=== PATIENT | female | born 1940 | race Caucasian/White ===

== ENCOUNTER 2016-03-05 20:04 | Emergency (ER) | payer OTHER ==
[2016-03-05] MEDS ORDERED: NORCO-7.5 PO ONE (20:16)
--- NOTE | 2016-03-05 20:45 | PROVIDER DOCUMENTATION ---
HPI-Musculoskeletal Pain/Inj - GENERAL Chief Complaint: Fall Stated Complaint: fall Time Seen by Provider: 03/05/16 20:10 Source: patient - HX OF PRESENT ILLNESS-MUSKULOSKELTAL Nature of Presenting Problem: 75 y/o [facility] BIB [facility] s/p fall just [employer]. She was trying to get from her chair to the wheelchair, fell on the right knee. Hit the left parietal region on the side of a tv stand, denies loc, headache, changes in vision, blurry vision, nausea or vomiting. States she has trouble ambulating at baseline, no walker used at this point. She has not been able to ambulate since then. Reports swelling and pain to the right knee. Denies deformity, but not able to move it without pain Review of Systems - Adult - REVIEW OF SYSTEMS - ADULT Constitutional: reports: no symptoms reported. denies: chills, fever, fatique Eyes: reports: no symptoms reported. denies: blurred vision, double vision, eye pain Ears, Nose, Mouth & Throat: reports: no symptoms reported. denies: ear pain, nose pain, throat pain Cardiovascular: reports: no symptoms reported. denies: chest pain, palpitations Respiratory: reports: no symptoms reported. denies: cough, shortness of breath , wheezing Gastrointestinal: reports: no symptoms reported. denies: abdominal pain, diarrhea, nausea, vomiting Genitourinary: reports: no symptoms reported. denies: dysuria, discharge, frequency Musculoskeletal: reports: see HPI, joint pain, joint swelling, muscle aches. denies: bone pain, back pain, neck pain Integumentary: reports: no symptoms reported. denies: rash Neurological: reports: no symptoms reported. denies: ataxia, dizziness/vertigo , headache/migraines Psychiatric: reports: no symptoms reported Endocrine: reports: no symptoms reported Hematologic/Lymphatic: reports: no symptoms reported Allergic/Immunologic: reports: no symptoms reported All Other Systems: Reviewed and Negative Past History - Adult - PAST MEDICAL HISTORY-ADULT Review of Records: reports: Old Records Reviewed, Nursing Assessment Review, Medications Reviewed, Social history reviewed & non-contributory. Major Childhood Illnesses: reports: denies history Cardiovascular: reports: denies history Respiratory: reports: denies history Gastrointestinal: reports: GI bleed Obstetrical/Gynecological: reports: denies history Genitourinary: reports: denies history Musculoskeletal: reports: neck/back injury Neurological: reports: denies history Psychiatric: reports: denies history Endocrine/Immune: reports: anemia, thyroid disorder Other Conditions: reports: denies history - PRIOR SURGERIES/PROCEDURES Surgical/Procedure History: reports: other (spinal fusion) - IMMUNIZATION STATUS Childhood Immunizations: See Nurse Assessment Flu Vaccine: See Nurse Assessment - FAMILY HISTORY Family History: reviewed, not pertinent Physical Exam-Injury Related - Physical Exam-Injury Related Initial Vital Signs Reviewed: Yes General Appearance: appears well, alert, no apparent distress Eyes: PERRL/EOMI, pink conjunctivae Head, Ears, Nose, Mouth & Throat: normocephalic/atraumatic, moist mucous membranes, normal ENT inspection, TMs normal, pharynx normal Neck: non-tender, full range of motion, supple, normal inspection. negative: C- spine tenderness, muscle spasm, tender lateral, tender midline Respiratory: chest non-tender, lungs clear, normal breath sounds, no pleuratic chest pain, no respiratory distress, no accessory muscle use. negative: respiratory distress, decreased breath sounds, accessory muscle use, crackles, rales, rhonchi, stridor, wheezing Cardiovascular: normal peripheral pulses, regular rate, rhythm, no edema, no gallop, no JVD, no murmur Peripheral Pulses: dorsalis-pedis (R): 2+, dorsalis-pedis (L): 2+ Lymphatic: no adenopathy Extremity: other (unable to ambulate. the right knee is warm and swollen with obvious joint effusion. No able to bend or extend the knee. 4/5 dorsi/plantar flexion of the right ankle. 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, no motor/sensory deficits, other ( negative rapid alternating movements.) Psych/Mental Status: AL, normal mood/affect, normal thought content, normal thought process, oriented x 3 - Glascow Coma Score Best Eye Response (Shila): (4) open spontaneously Best Verbal Response (Shila): (5) oriented Best Motor Response ([place]): (6) obeys commands Progress - PLAN OF CARE/RESULTS Progress/Plan/Lab Results: Vital Signs Temp Pulse Resp BP Pulse Ox 03/05/16 20:06 98.3 F 80 18 183/100 97 Penicillins Allergy (Verified 05/04/14 18:11) RASH Iron 18 mg PO DAILY 07/26/15 Meloxicam [Mobic] 7.5 mg PO DAILY PRN PRN #15 tablet 07/26/15 Multivitamin [Multivitamins] 1 each PO DAILY 07/26/15 Aa8/A-Carnitin/Grp/[place]/Hc126 [Gabadone Capsule] 100 mg PO BID 03/05/16 Calcium Citrate/Vitamin D [Citracal + D] 1 tab PO DAILY 03/05/16 Furosemide 20 mg PO DAILY 03/05/16 Glucosamine/D3/Boswellia Rachell [Osteo Bi-Flex Tablet] 1 tab PO DAILY 03/05/16 Levothyroxine [Synthroid] 75 mcg PO DAILY 03/05/16 Magnesium 250 mg PO DAILY 03/05/16 Mv-Mn/Iron/FA/Herbal Cmplx#190 [Vitamin D3 Complete Caplet] 1 tab PO DAILY 03/05 Omeprazole 40 mg PO DAILY 03/05/16 Potassium Chloride E.r. [Klor-Con] 10 meq PO DAILY 03/05/16 Orders Category Date Time Status Knee Immobilizer .right Care 03/05/16 20:50 Active KNEE 3 VIEWS RIGHT [RAD] Stat Exams 03/05/16 20:17 Taken Hydrocodone/APAP 7.5 mg/325 mg [[place]-7.5] Med 03/05/16 20:16 Discontinued 1 each PO NOW ONE - XRAY 1 XRAY: Right XRAY Study: Knee Impression: Normal (joint effusion, no fx ER prelim) Procedures - SPLINTING Right Lower Extremity Pre-Procedure Neurovascular Exam: Intact Pre-Fabricated Splint: Knee Immobilizer Applied By: ED Nurse Post Procedure Neurovascular Exam: Intact Departure - Departure Time of Disposition Order: 20:51 DIAGNOSIS: Contusion of knee, right Qualifiers: Encounter type: initial encounter Qualified Code(s): S80.01XA - Contusion of right knee, initial encounter Disposition: HOME 01 Certified Medical Emergency: Emergent Condition: Stable Additional Instructions: Follow up with [facility] ED Follow Up Instructions: You have been treated by a care provider in the Emergency Department. These instructions are being provided to you so you can have an understanding of how to care for yourself upon discharge. Upon discharge from the Emergency Department, you are responsible for making arrangements for follow-up care by a physician of your choice. Take all prescribed medications as directed. Return to the Emergency Department immediately for any new or worsening symptoms. You may call the Physician Referral phone number at [phone] to obtain a list of Physicians who are taking new patients. Prescriptions: Tramadol [Ultram] 50 mg PO Q8HR #20 tablet Referrals: Mauricio Vargas MD [Primary Care Provider] - Fernando Maldonado MD [STAFF PHYSICIAN] - Attestation - Physician/ Mid-level Attestation Patient care was provided by Mid-level provider (PURSE MAKER/PA):: Yes Mid-level provider:: Albertina Evans Mid-level documentation review:: The Mid-level provider documentation, treatment plan and medical decision making was reviewed by the physician who agrees with all treatment and medical decision making by the MLP.
[2016-03-05 21:19] VITALS: BP 180/091
--- NOTE | 2016-03-05 23:33 | Diag Imaging Result Document ---
PROCEDURE NAME: KNEE 3 VIEWS RIGHT - 03/05/2016 PLAIN RADIOGRAPH OF THE RIGHT KNEE 3 VIEWS: COMPARISON: None available. FINDINGS: There is a tiny degenerative enthesophyte at the ventral aspect of the patella. There is no evidence of fracture, dislocation, or intrinsic osseous lesion, otherwise. The joint spaces appear to be preserved. There is probably a very small joint effusion tracking into the suprapatellar bursa. There is suggestion of soft tissue edema about the knee. IMPRESSION: Soft tissue edema and likely small joint effusion but no evidence of acute osseous abnormality.
== END 2016-03-05 21:19 | disposition home or self-care (01) ==
LOC: P.ED 20:04
DX: S80.01XA Contusion of right knee, initial encounter (principal); M25.561 Pain in right knee; M25.461 Effusion, right knee; M79.1 Myalgia; E07.9 Disorder of thyroid, unspecified; D64.9 Anemia, unspecified; Z87.19 Personal history of other diseases of the digestive system; W07.XXXA Fall from chair, initial encounter; Z79.899 Other long term (current) drug therapy; Z98.1 Arthrodesis status
CPT/HCPCS: 99283